=== PATIENT | male | born 1945 | race Caucasian/White ===

== ENCOUNTER 2022-05-19 10:22 | Emergency (ER) | payer OTHER, SELFPAY ==
--- NOTE | ~2022-05-19 | US_ITS ---
EXAMINATION: US arterial duplex [facility] DATE: 05/19/2022 12:14 INDICATION: Peripheral arterial disease. TECHNIQUE: Multiple grayscale and Doppler ultrasound images of the left lower limb arteries were obta ined. COMPARISON: None FINDINGS: There is a stent from left common femoral artery to the below-knee popliteal artery that to tally occluded. Peak systolic velocity is 7 cm/s in common femoral artery, 55 cm/s in proximal superf icial femoral artery, 174 cm/s in mid superficial femoral artery, 22 cm/s in distal superficial femor al artery, 36 cm/s in popliteal artery, 20 cm/s in posterior tibial artery, and 22 cm/s in dorsalis p krystal. IMPRESSION: 1. Total occluded stent from left common femoral artery to below-knee popliteal artery. 2. Slow flow in left common femoral artery and increased velocity gradients in superficial femoral ar clau, consistent with arterial occlusive disease. Reviewed, dictated and finalized at location A. IMPRESSION: 1. Total occluded stent from left common femoral artery to below-knee popliteal artery. 2. Slow flow in left common femoral artery and increased velocity gradients in superficial femoral artery, consistent with arterial occlusive disease.
[2022-05-19 10:25] VITALS: BP 189/71; PULSE 77; RESP 20; TEMP 36.8; O2SAT 100
--- NOTE | 2022-05-19 10:35 | ED.GENADULT ---
HPI - General Adult General Chief complaint: Extremity Problem,Nontraumatic Stated complaint: left leg art occlusion Time Seen by Provider: 05/19/22 10:24 History of Present Illness HPI narrative: 76-year-old male with history of peripheral vascular disease and a reported stent in his left leg presents to the emergency department for evaluation of left leg pain for the last 5 weeks. Patient is staying at a local long-term care facility and states that he has had persistent leg pain for the last 5 weeks with no change. He reports the facility did an ultrasound yesterday and he was reported to have an arterial occlusion. Related Data Allergies Allergy/AdvReac Type Severity Reaction Status Date / Time Sulfa (Sulfonamide Allergy Unknown Verified 05/19/22 13:07 Antibiotics) Review of Systems Review of Systems: CONSTITUTIONAL: Denies fever, chills, or sweats. EYES: Denies visual changes, redness, or discharge. ENT: Denies rhinorrhea, congestion, sore throat, or otalgia. CARDIOVASCULAR: Denies chest pain, palpitations, or edema. RESPIRATORY: Denies cough or dyspnea. GASTROINTESTINAL: Denies abdominal pain, nausea, vomiting, or diarrhea. GENITOURINARY: Denies dysuria or hematuria. SKIN: Denies rash or itching. MUSCULOSKELETAL: Left foot pain NEUROLOGIC: Denies headache, numbness, or weakness. Exam Narrative: APPEARANCE: Well appearing, no pain, no distress, well-nourished. HEAD: normocephalic, atraumatic. EYES: PERRLA/EOMI, conjunctivae clear. NOSE: Normal no drainage EARS:TMS clear with good light reflex. THROAT: Pharynx clear, no exudate. NECK: Supple. No adenopathy, no masses. RESPIRATORY: Airway patent, respirations nonlabored. Clear to auscultation bilaterally, no rales, rhonchi, wheezing. CARDIOVASCULAR: Regular rate and rhythm without murmurs rubs or gallops. ABDOMINAL: Soft, nontender, nondistended, normal bowel sounds MUSCULOSKELETAL: Moves all extremities. Strength/ROM intact, No edema, No calf tenderness. NEURO: Alert. Cranial nerves II through XII intact. Good gait. Good coordination SKIN: Warm, dry. Normal Color PSYCHIATRIC: Normal affect/mood. Patient has chronic venous stasis changes of the left lower leg. From mid calf down he has chronic darkening of the leg. Patient is neurologically intact and does have some pain from mid calf to mid foot. Patient has cyanosis from midfoot extending to the toes. Patient's left great toe surgically absent. Patient has decree sensation over the toes. Toes are a deep cyanotic color with no cap refill Femoral and popliteal artery were dopplered. Was unable to Doppler a dorsalis pedal pulse Course Course Emergency Course: Patient reports placement of an arterial stent at [facility] about 5 years ago. Patient is unsure how long ago his does needed to be surgically amputated. Case was discussed with K[facility] and patient was accepted as an ED to ED transfer. Heparin was started prior to transfer. Patient was updated on the plan for transfer and treatment. All questions and concerns were addressed. Patient was comfortable at time of transfer. Vital Signs Vital signs: Vital Signs Temperature 98.3 F 05/19/22 10:25 Pulse Rate 77 05/19/22 10:25 Respiratory Rate 20 05/19/22 10:25 Blood Pressure 189/71 H 05/19/22 10:25 Pulse Oximetry 100 05/19/22 10:25 Oxygen Delivery Room Air 05/19/22 10:25 Temperature 98.3 F 05/19/22 10:25 Pulse Rate 72 05/19/22 15:24 Respiratory Rate 14 05/19/22 15:24 Blood Pressure 151/89 H 05/19/22 15:24 Pulse Oximetry 99 05/19/22 15:24 Oxygen Delivery Room Air 05/19/22 10:25 Medical Decision Making Vital Signs Vital Signs: Vital Signs Temperature 98.3 F 05/19/22 10:25 Pulse Rate 77 05/19/22 10:25 Respiratory Rate 20 05/19/22 10:25 Blood Pressure 189/71 H 05/19/22 10:25 Pulse Oximetry 100 05/19/22 10:25 Oxygen Delivery Room Air 05/19/22 10:25 Temperature 98.3 F 05/19/22 10:25 P
--- NOTE | 2022-05-19 10:59 | PC.NURSE ---
called [facility] and spoke with Iesha about Pt's Doppler of L. leg. She states they called and told them there is decreased blood flow. she states she does not have a copy of the report yet and will fax it to us as soon as she gets it.
[2022-05-19 11:23] LABS: Basophils Percent Auto 0.7 % (0.2-1.2); Eosinophils Absolute Auto 0.1 K/mm3 (0-0.3); Hematocrit 40.1 % (42.0-52.0); Hemoglobin 12.6 g/dL (14.0-18.0); Immature Granulocyte Absolute 0.03 K/mm3 (0.00-0.031); Immature Granulocyte Percent A 0.5 % (0-0.5); Lymphocytes Absolute Auto 1.01 K/mm3 (0.9-3.2); Lymphocytes Percent Auto 16.5 % (18.3-44.2); Mean Corpuscular HGB Conc 31.4 g/dl (32-36); Mean Corpuscular Hemoglobin 30.4 pg (26-34); Mean Corpuscular Volume 96.9 fl (80-100); Monocytes Absolute Auto 0.6 K/mm3 (0.1-0.6); Monocytes Percent Auto 9.2 % (2.6-8.5); Neutrophils Absolute Auto 4.4 K/mm3 (1.3-6.7); Neutrophils Percent Auto 71.1 % (45.5-73.1); Platelet Count Result 266 k/mm3 (150-375); Red Blood Count 4.14 M/mm3 (4.6-6.20); Red Cell Distribution Width 14.1 % (11.5-14.5); White Blood Count 6.1 K/mm3 (4.5-10.0)
--- NOTE | 2022-05-19 11:24 | PC.NURSE ---
Patient report received from ANDREA Conti. All questions answered and care of patient assumed.
--- NOTE | 2022-05-19 11:26 | PC.NURSE ---
Patient off unit to US.
[2022-05-19 11:32] LABS: Prothrombin Time 12.6 Seconds (11.1-14.7)
[2022-05-19 11:33] LABS: Partial Thromboplastin Time 31.7 SECONDS (22.3-36.8)
[2022-05-19 11:35] LABS: Alanine Aminotransferase 43 U/L (6-50); Albumin Level 3.7 g/dL (3.5-5.1); Alkaline Phosphatase 236 U/L (38-126); Anion Gap 9 mmol/L (8-16); Aspartate Amino Transferase 45 U/L (17-59); Bilirubin,Total 0.6 mg/dL (0.2-1.3); Blood Urea Nitrogen 24 mg/dL (9-20); Calcium 8.8 mg/dL (8.4-10.2); Carbon Dioxide 30 mmol/L (22-30); Chloride 103 mmol/L (98-107); Estimated Glomerular Filt Rate 37; Glucose 116 mg/dL (65-110); Potassium 4.4 mmol/L (3.4-5.0); Sodium 142 mmol/L (137-145)
[2022-05-19] MEDS: HEPARIN SODIUM 5,000 UNITS/ML VIAL 6500 UNITS IV PUSH (13:28)
[2022-05-19] MEDS: HEPARIN SOD/D5W 100 UNITS/ML 25,000 UNITS/250 ML BAG 15 UNITS IV CONT (13:30)
[2022-05-19 13:50] VITALS: PULSE 71; RESP 16; O2SAT 99
[2022-05-19 14:42] VITALS: PULSE 66; O2SAT 100
[2022-05-19 15:24] VITALS: BP 151/89; PULSE 72; RESP 14; O2SAT 99
== END 2022-05-19 15:25 | disposition short-term general hospital (02) ==
PROVIDERS: Emergency Provider Emergency Medicine
DX: T82.856A Stenosis of peripheral vascular stent, initial encounter (principal)
CPT/HCPCS: 36415; 80053; 85025; 85610; 85730; 93926; 96365; 96366; 99285; J1644